=== PATIENT | female | born 1990 | race Hispanic/Latino ===

== ENCOUNTER 2021-08-26 18:15 | Inpatient (IN) | payer SELFPAY ==
[2021-08-26] MEDS ORDERED: NA CHLORIDE 0.9% 1,000 ML ONE ×2 (18:46→20:19)
[2021-08-26 19:12] LABS: Absolute Lymphocytes (CBC) 1.2 K/uL (0.7-4.9); Hematocrit 23.6 % (36.0-45.0); Lymphocytes % 15.3 % (15.3-44.8); MPV 8.6 fL (7.6-11.3)
[2021-08-26 19:19] LABS: Protime INR 1.07
[2021-08-26 19:43] LABS: BUN Blood Urea Nitrogen 12 mg/dL (7-18); Bicarbonate 24 mmol/L (21-32); Glucose Level 137 mg/dL (74-106); Potassium 3.6 mmol/L (3.5-5.1); Sodium Level 138 mmol/L (136-145)
[2021-08-26 19:47] LABS: HCG, Quantitative 1925 mIU/mL (1-3)
[2021-08-26 21:22] LABS: Urine Blood 3+ (Negative); Urine Glucose Negative (Negative); Urine Protein Negative (Negative)
--- NOTE | 2021-08-26 21:51 | RAD REPORT ---
EXAM DESCRIPTION: US - Transvaginal OB - 08/26/2021 9:29 pm CLINICAL HISTORY: with vaginal bleeding COMPARISON: None. FINDINGS: The uterus measures 10 x 5 x 7 centimeters. The endometrial stripe measures 11 millimeter s. A gestational sac is not seen. Multiple small cystic areas are present within the periphery of the uterus Left ovary is normal in size and echotexture. Right ovary not seen secondary to overlying bowel gas The right and left adnexa unremarkable No significant free fluid IMPRESSION: Nonvisualization of a gestational sac within the endometrium. These findings may represent an . Other considerations include an early IUP in which the gest ational sac is not seen and even an ectopic . . This all should be correlated clinically and with serial beta HCG levels. Followup endovaginal sonogram in 1 week recommended Multiple small cystic structures within the periphery of the uterus. This is of uncertain etiology. A n atypical molar is probably unlikely but should be correlated with beta HCG levels
--- NOTE | 2021-08-26 21:57 | ER ---
Nurse's Notes [facility] Name: Rachael Ellis Age: 31 yrs Sex: Female : 1990 Arrival Date: 08/26/2021 Time: 18:16 Bed 4 Private MD: Diagnosis: Complete or unspecified spontaneous with other complications;Anemia, unspecified Presentation: 08/26 18:19 Chief complaint: Patient states: pt presented to ED reporting heavy mensural / vaginal foster bleeding. LMP July 21. pt is going through 6 pads a day[place]. Coronavirus screen: Vaccine status: Patient reports being unvaccinated. Ebola Screen: Patient denies travel to an Ebola-affected area in the 21 days before illness onset. Initial Sepsis Screen: Does the patient meet any 2 criteria? No. Patient's initial sepsis screen is negative. Does the patient have a suspected source of infection? No. Patient's initial sepsis screen is negative. Risk Assessment: Do you want to hurt yourself or someone else? Patient reports no desire to harm self or others. Onset of symptoms was August 26, 2021. 18:19 Method Of Arrival: EMS: [facility] foster 18:19 Acuity: SHARIFA 3 foster Triage Assessment: 18:24 General: Appears in no apparent distress. Behavior is calm, cooperative. Pain: foster Complains of pain in abdomen. SECOND HAND: 18:24 LMP 07/21/2021 foster Historical: - Allergies: 18:24 Motrin IB; foster - Home Meds: 18:21 None [Active]; foster - PMHx: 18:21 None; foster - PSHx: 18:21 None; foster - Immunization history:: Adult Immunizations unknown. - Social history:: Smoking status: Patient denies any tobacco usage or history of. Screenin:28 Abuse screen: Denies threats or abuse. Denies injuries from another. Nutritional foster screening: No deficits noted. Tuberculosis screening: No symptoms or risk factors identified. Fall Risk None identified. Assessment: 18:28 General: Appears in no apparent distress. Behavior is calm, cooperative. : Reports foster vaginal bleeding that is heavy flow. 19:31 General: Appears in no apparent distress. comfortable, Behavior is calm, cooperative. lg3 Pain: Denies pain. Neuro: No deficits noted. [place] Agitation-Sedation Scale (RASS): 0 - Alert and Calm Level of Consciousness is awake, alert, obeys commands, Oriented to person, place, time, situation. Cardiovascular: No deficits noted. Denies chest pain, shortness of breath. Respiratory: No deficits noted. Airway is patent Trachea midline Respiratory effort is even, unlabored, Respiratory pattern is regular, symmetrical. GI: Abdomen is round non-distended. : Reports vaginal bleeding that is heavy flow. EENT: No deficits noted. No signs and/or symptoms were reported regarding the EENT system. Derm: No deficits noted. No signs and/or symptoms reported regarding the dermatologic system. Skin is intact, is healthy with good turgor, Skin is dry. Musculoskeletal: No deficits noted. No signs and/or symptoms reported regarding the musculoskeletal system. 22:45 Reassessment: Patient appears in no apparent distress at this time. No changes from lg3 previously documented assessment. Patient and/or family updated on plan of care and expected duration. Pain level reassessed. Patient is alert, oriented x 3, equal unlabored respirations, skin warm/dry/pink. Vital Signs: 18:19 BP 114 / 73; Pulse 76; Resp 18; Temp 98.3(O); Pulse Ox 97% ; Weight 74.84 kg; Height 5 foster ft. 3 in. (160.02 cm); 19:33 BP 95 / 54; Pulse 81; Resp 16; Pulse Ox 100% on R/A; lg3 22:45 BP 101 / 60; Pulse 85; Resp 16; Pulse Ox 100% on R/A; lg3 18:19 Body Mass Index 29.23 (74.84 kg, 160.02 cm) foster ED Course: 18:16 Patient arrived in ED. eb 18:17 Toni Morillo PA is PHCP. cp 18:17 Toni Manriquez MD is Attending Physician. cp 18:19 Naz Ritchie RN is Primary Nurse. foster 18:21 Triage completed. foster 18:24 Arm band placed on. foster 18:28 Patient has correct armband on for positive identification. Bed in low position. foster 18:28 No provider procedures requiring assistance completed. Maintain EMS IV. Dressing foster intact. Gauge \T\ site: 18g LAC. 19:20 Primary Nurse role handed off by Naz Ritchie, MICHELLE mw2 19:31 Judy Ramsey, RN is Primary Nurse. lg3 21:31 Transvaginal Ob In Process Unspecified. EDMS 21:56 Bob Smith MD is Hospitalizing Provider. cp 23:29 Patient admitted, IV remains in place. intact, No redness/swelling at site. lg3 Administered Medications: 19:01 Drug: NS 0.9% 1000 ml Route: IV; Rate: 1 bolus; Site: left antecubital; foster 20:13 Follow up: Response: No adverse reaction; IV Status: Completed infusion; IV Intake: lg3 1000ml 20:56 Drug: NS 0.9% 1000 ml Route: IV; Rate: 1 bolus; Site: left antecubital; lg3 23:38 Follow up: Response: No adverse reaction; IV Status: Completed infusion; IV Intake: lg3 1000ml 22:40 Not Given (Duplicate Order): D5-1/2 NS 1000 ml IV at 150 ml/hr bolus; add 20 units of cp pitocin 22:40 Not Given (Duplicate Order): Pitocin (oxytocin) 20 units IV at calculated rate once cp 22:46 Drug: METHERgine 0.2 mg Route: IM; Site: left gluteus; lg3 22:47 Follow up: Response: No adverse reaction lg3 Intake: 20:13 IV: 1000ml; Total: 1000ml. lg3 23:38 IV: 1000ml; Total: 2000ml. lg3 Outcome: 21:57 Decision to Hospitalize by Provider. cp 23:29 Admitted to L \T\ D, accompanied by tech, family with patient, via wheelchair, room 270. lg3 23:29 Condition: stable 23:29 Instructed on the need for admit. 08/27 00:27 Patient left the ED. lg3 Signatures: Dispatcher [employer] EDMS Toni Morillo PA PA cp Jac Dougherty mw2 Juana Pierce Lacie, MICHELLE RN lg3 Au-StagerNaz RN RN ha Corrections: (The following items were deleted from the chart) 08/26 18:26 18:21 Allergies: No Known Allergies; foster foster
--- NOTE | 2021-08-26 21:57 | EDPHYS ---
Physician Documentation [facility] Name: Rachael Ellis Age: 31 yrs Sex: Female : 1990 Arrival Date: 08/26/2021 Time: 18:16 Bed 4 Private MD: ED Physician Toni Manriquez HPI: 08/26 21:21 This 31 yrs old Female presents to ER via EMS with complaints of Vaginal cp Bleeding. 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 - Social history:: Smoking status: Patient denies any tobacco usage or history of. ROS: 21:30 Constitutional: Negative for body aches, chills, fever, poor PO intake. cp 21:30 Eyes: Negative for injury, pain, redness, and discharge. cp 21:30 ENT: Negative for drainage from ear(s), ear pain, sore throat, difficulty swallowing, difficulty handling secretions. 21:30 Cardiovascular: Negative for chest pain, edema, palpitations. 21:30 Respiratory: Negative for cough, shortness of breath, wheezing. 21:30 Abdomen/GI: Positive for abdominal pain, Negative for vomiting, diarrhea, constipation. 21:30 Back: Negative for radiated pain. 21:30 : Positive for vaginal bleeding, Negative for urinary symptoms. 21:30 Neuro: Positive for dizziness, syncope, Negative for altered mental status, headache, weakness. 21:30 All other systems are negative. Exam: 21:33 Constitutional: The patient appears in no acute distress, alert, awake, non-toxic, well cp developed, well nourished. 21:33 Head/Face: Normocephalic, atraumatic. cp 21:33 Eyes: Periorbital structures: appear normal, Conjunctiva: normal, no exudate, no injection, Sclera: no appreciated abnormality, Lids and lashes: appear normal, bilaterally. 21:33 ENT: External ear(s): are unremarkable, Nose: is normal, Mouth: Lips: moist, Oral mucosa: pink and intact, moist, Posterior pharynx: Airway: no evidence of obstruction, patent. 21:33 Chest/axilla: Inspection: normal. 21:33 Cardiovascular: Rate: normal, Rhythm: regular, Edema: is not appreciated, JVD: is not appreciated. 21:33 Respiratory: the patient does not display signs of respiratory distress, Respirations: normal, no use of accessory muscles, no retractions, labored breathing, is not present, Breath sounds: are clear throughout, no decreased breath sounds, no stridor, no wheezing. 21:33 Abdomen/GI: Inspection: abdomen appears normal, Bowel sounds: active, all quadrants, Palpation: soft, in all quadrants, mild abdominal tenderness, in the suprapubic area, rebound tenderness, is not appreciated, involuntary guarding, is not appreciated. 21:33 Back: pain, is absent, ROM is normal. 21:33 : Pelvic Exam: Speculum exam: moderate bleeding, blood clots in vaginal vault, os that is open, tissue in cervix is seen, the nurse was present for the exam, Sexual behavior: the patient is sexually active, and reports a single partner, method of control is none. Vital Signs: 18:19 BP 114 / 73; Pulse 76; Resp 18; Temp 98.3(O); Pulse Ox 97% ; Weight 74.84 kg; Height 5 foster ft. 3 in. (160.02 cm); 19:33 BP 95 / 54; Pulse 81; Resp 16; Pulse Ox 100% on R/A; lg3 22:45 BP 101 / 60; Pulse 85; Resp 16; Pulse Ox 100% on R/A; lg3 18:19 Body Mass Index 29.23 (74.84 kg, 160.02 cm) foster MDM: 18:17 Patient medically screened. [facility] 21:40 Physician consultation: Bob Smith MD was called at 21:40, was contacted at 21:40, regarding admission, to labor and delivery, patient's condition, wants patient to be given IM Methergine 0.2 mg and to start patient on Pitocin drip. 21:50 Data reviewed: vital signs, nurses notes, lab test result(s), radiologic studies, cp ultrasound. 21:50 Counseling: I had a detailed discussion with the patient and/or guardian regarding: the cp historical points, exam findings, and any diagnostic results supporting the discharge/admit diagnosis, lab results, radiology results, the need for further work-up and treatment in the hospital. Response to treatment: the patient's symptoms have mildly improved after treatment. 08/26 18:35 Order name: Basic Metabolic Panel; Complete Time: 19:59 cp / 19:59 Interpretation: Normal except: CL 108; GLUC 137; CA 7.6. cp 08/26 18:35 Order name: CBC with Diff; Complete Time: 19:59 cp 08/26 19:59 Interpretation: Normal except: RBC 2.70; HGB 8.3; HCT 23.6; BLANCA% 79.5. cp 08/26 18:35 Order name: Quantitative Hcg; Complete Time: 19:59 cp 08/26 19:59 Interpretation: Abnormal: HCGQ 1925. cp 08/26 18:36 Order name: PT-INR; Complete Time: 19:59 cp 08/26 18:36 Order name: Ptt, Activated; Complete Time: 19:59 cp 08/26 18:36 Order name: Type And Screen cp 08/26 18:36 Order name: Urine Microscopic Only cp 08/26 21:22 Order name: Urine Dipstick-Ancillary; Complete Time: 21:42 EDMS 08/26 21:26 Order name: Urine --Ancillary (enter results); Complete Time: 01:24 mw2 08/26 22:16 Order name: COVID-19/FLU A+B (Document "Date of Onset" if Symptomatic); Complete Time: mw2 01:24 08/26 22:42 Order name: Hematocrit; Complete Time: 01:24 EDMS 08/26 22:42 Order name: Hemoglobin; Complete Time: 01:24 EDMS 08/26 18:35 Order name: IV Saline Lock; Complete Time: 19:01 cp 08/26 18:35 Order name: Labs collected and sent; Complete Time: 19:01 cp 08/26 18:35 Order name: NPO; Complete Time: 19: cp 08/26 18:35 Order name: Urine Dipstick-Ancillary (obtain specimen); Complete Time: 21:22 cp 08/26 18:36 Order name: Urine Test (obtain specimen); Complete Time: 21:22 cp 08/26 18:36 Order name: IV; Complete Time: 19: cp 08/26 20:00 Order name: US Transvaginal Ob; Complete Time: 21:53 cp 08/27 01:25 Interpretation: Report reviewed. cp 08/26 20:01 Order name: Pelvic Exam Setup; Complete Time: 20:20 cp 08/26 22:42 Order name: Regular EDMS Administered Medications: 19:01 Drug: NS 0.9% 1000 ml Route: IV; Rate: 1 bolus; Site: left antecubital; foster 20:13 Follow up: Response: No adverse reaction; IV Status: Completed infusion; IV Intake: lg3 1000ml 20:56 Drug: NS 0.9% 1000 ml Route: IV; Rate: 1 bolus; Site: left antecubital; lg3 23:38 Follow up: Response: No adverse reaction; IV Status: Completed infusion; IV Intake: lg3 1000ml 22:40 Not Given (Duplicate Order): D5-1/2 NS 1000 ml IV at 150 ml/hr bolus; add 20 units of cp pitocin 22:40 Not Given (Duplicate Order): Pitocin (oxytocin) 20 units IV at calculated rate once cp 22:46 Drug: METHERgine 0.2 mg Route: IM; Site: left gluteus; lg3 22:47 Follow up: Response: No adverse reaction lg3 Disposition Summary: 08/26/21 21:57 Hospitalization Ordered Hospitalization Status: Observation cp Provider: Bob Smith cp [facility] cp Condition: Stable cp Problem: new cp Symptoms: have improved cp Bed/Room Type: Standard cp Room Assignment: 270-(08/26/21 23:03) bb Diagnosis - Complete or unspecified spontaneous with other complications cp - Anemia, unspecified cp Forms: - Medication Reconciliation Form cp - SBAR form cp Signatures: Dispatcher [employer] EDMS Toni Manriquez MD MD cha Ballard, Brenda RN RN bb Toni Morillo PA PA cp Gibson, Lacie, RN RN lg3 Naz Ritchie RN RN ha Corrections: (The following items were deleted from the chart) 18:26 18:21 Allergies: No Known Allergies; foster foster 19:07 18:36 ABO/RH TYPING+BB.LAB.BRZ ordered. [facility] 23:03 21:57 cp bb
[2021-08-26] MEDS ORDERED: METHYLERGONOVINE 0.2MG/ML AMP IM ONE (22:31)
[2021-08-26] MEDS ORDERED: ACETAMINOPHEN 500 MG TAB PO PRN (22:36)
[2021-08-26] MEDS ORDERED: ONDANSETRON 4 MG/2 ML VIAL IV PRN (22:36)
[2021-08-26] MEDS ORDERED: D5LR 1,000 ML with OXYTOCIN 20 UNIT IV SCH ×2 (23:00)
[2021-08-26 23:01] LABS: SARS-COV-2 RT PCR NEGATIVE (NEGATIVE)
[2021-08-27] MEDS ORDERED: D5LR 1,000 ML IV ONE (00:24)
[2021-08-27] MEDS ORDERED: OXYTOCIN 10 UNIT/ML ML ONE (00:25)
[2021-08-27 00:55] VITALS: BMI 29.2
[2021-08-27] MEDS ORDERED: OXYTOCIN IV SCH ×4 (01:00)
[2021-08-27] MEDS ORDERED: D5LR IV SCH ×2 (01:00)
[2021-08-27] MEDS ORDERED: RINGERS LACTATE IV SCH ×2 (01:00)
[2021-08-27 01:19] LABS: Hematocrit 23.7 % (36.0-45.0)
[2021-08-27 01:25] VITALS: O2SAT 100
[2021-08-27] MEDS ORDERED: Rho(D) IG (HUMAN) 300 MCG SYR IM ONE (01:33)
[2021-08-27] MEDS: METHYLERGONOVINE 0.2 MG TAB PO PRN ×2 (02:53→06:30)
[2021-08-27 05:49] VITALS: BP 112/50; TEMP 97.8
--- NOTE | 2021-08-27 10:08 | PREOPHP ---
Date of Admission: 08/27/2021 History Of Present Illness: Rachael Ellis is a 31-year-old 2, para 1, first trimester, compl ete spontaneous . The patient is Rh positive. Came to the emergency room with bleeding. [facility] bleeding basically has stopped. She was put on IV drip Pitocin, given Methergine 1 time IM and the n since then orally if she has needed it and really has not needed anything for some time. She is st able. Her blood pressures are normal. Her pulses are in the 70-80 range. She has ambulated without getting dizzy. She knows she is anemic and is instructed to take iron twice a day for the next connor h or so and seeking help in [place] for either contraception or for followup from this loss. Family History: Not contributory really. She has a grandfather who had cancer, site unknown and ano ther grandparent who had diabetes. Allergies: NO ALLERGIES. Past Surgical History: No previous surgeries. Medications: No medications prior to admission. She was down here from [place], apparently going to [facility]. Physical Examination: HEENT: Clear. Pupils equal, round, reactive to light and accommodation. Conjunctivae well perfused. No oral, lingual, or buccal lesions. Chest and lungs: Clear. Breasts: Not examined. Abdomen: Soft. Extremities: Clear without edema, cyanosis, or clubbing. Pelvic: Exam not done. Was done in the ER without signs of any type of tenderness or problems. Assessment: The patient will be dismissed this morning. Plans to go back to [place] for followup there . MONTEZ/FADI Voice ID: [id number]
--- NOTE | 2021-08-27 10:14 | DS ---
Rachael Ellis is a 31-year-old 2, para 0, first trimester spontaneous complete . The patient is Rh positive. Hematocrit is in the 24 range, but stable. Lochia is minimal to none. She is ambulating. Her pulses are 70-80. She is quite stable. Instructed to take iron twice a day for a month, to follow up in [place] with of OB there. Has no questions this morning. Ultrasound showed n o remnants in the uterus. Final Diagnosis: First trimester complete spontaneous . MONTEZ/FADI Voice ID: [id number] Report ID: [id number]
== END 2021-08-27 10:00 | disposition home or self-care (01) | DRG 779 ==
LOC: ER 18:15 → 2ND-WC 22:35 → OBSVTOIN 08-27 07:57
PROVIDERS: ADMIT Specialist; ATTEND Specialist
DX: O03.9 Complete or unspecified spontaneous abortion without complication (principal); Z20.822 Contact with and (suspected) exposure to COVID-19
CPT/HCPCS: 0240U; 36415; 76817; 80048; 81003; 81025; 84702; 85014; 85018; 85025; 85610; 85730; 86850; 86900; 86901; 88305; 96360; 96361; 96372; 99285; G0378; J2210; J7030; J7121